=== PATIENT | female | born 1970 | race Caucasian/White ===

== ENCOUNTER 2020-05-01 06:48 | Outpatient (NON) | payer OTHER, SELFPAY ==
[2020-05-01 23:56] LABS: SARS-CoV-2 RNA PCR Negative
== END 2020-05-01 06:49 ==
LOC: ANHCOVIDDT 06:55
PROVIDERS: Visit Provider Nurse Practitioner
DX: Z20.828 Contact with and (suspected) exposure to other viral communicable diseases (principal)
CPT/HCPCS: 87635; C9803; U0003